=== PATIENT | male | born 1960 | race Caucasian/White ===

== ENCOUNTER 2017-11-17 18:47 | Emergency (ER) | END 2017-11-17 20:40 | disposition home or self-care (01) ==

== ENCOUNTER 2019-02-21 16:33 | Emergency (ER) | payer BC, OTHER ==
[~2019-02-21] VITALS: Ht 167.6 cm; Wt 72.2 kg
[~2019-02-21 16:33] MED LIST: AMOX500C2 PO; IBUP-1542 PO
[2019-02-21 16:49] VITALS: BP 129/58; PULSE 58; RESP 20; Ht 167.6 cm; Wt 72.2 kg
[2019-02-21] MEDS ORDERED: AMOX1TAB10 PO (17:07)
[2019-02-21] MEDS ORDERED: IBUP-1542 PO (17:07)
--- NOTE | 2019-02-21 17:17 | ERD ---
ER Documentation Chief Complaint Chief Complaint c/o right sided dental pain with "puss coming out", had procedure last year HPI Patient is a 58-year-old male with no past medical history, brought in by daughter who presents to the ER for concerns of right upper dental pain. Patient states symptoms started yesterday. Patient states he has had similar pain in the past. Patient states he has had a dental procedure at the affected site in the past and he feels as if his incision site has "opened up". Patient has had dental surgery in the past. Patient denies any fevers or chills. Patient states he is noticed some drainage from the affected area. Patient has not seen a dentist yet. ROS All systems reviewed and are negative except as per history of present illness. Medications Home Meds Active Scripts Ibuprofen* (Motrin*) 600 Mg Tab, 600 MG PO Q6, #30 TAB Prov:GINNA PITTS PA-C 02/21/19 Amoxicillin/Potassium Clav (Amox-Clav 875-125 mg Tablet) 875-125 mg Tab, 1 TAB PO BID for 10 Days, #20 TAB Prov:GINNA PITTS PA-C 02/21/19 Ibuprofen* (Motrin*) 600 Mg Tab, 600 MG PO Q6, #30 TAB Prov:ANDI ROSS NP 11/17/17 Amoxicillin* (Amoxicillin*) 500 Mg Cap, 500 MG PO TID for 10 Days, CAP Prov:ANDI ROSS NP 11/17/17 Reported Medications [None] No Conflict Check 07/10/10 Allergies Allergies: Coded Allergies: No Known Allergies (Verified Allergy, Unknown, 07/10/10) PMhx/Soc History of Surgery: Yes (APPENDECTOMY) Anesthesia Reaction: No Hx Neurological Disorder: No Hx Respiratory Disorders: No Hx Cardiac Disorders: No Hx Psychiatric Problems: No Hx Miscellaneous Medical Probl: No Hx Alcohol Use: Yes (07/07/10) Hx Substance Use: No Hx Tobacco Use: No FmHx Family History: No diabetes Physical Exam Vitals Vital Signs Date Temp Pulse Resp B/P (MAP) Pulse Ox O2 O2 Flow FiO2 Time Delivery Rate 02/21/19 96.9 58 20 129/58 96 16:49 (81) Physical Exam GENERAL: Well-developed, well-nourished male. Appears in no acute distress. Speaking in full sentences. HEAD: Normocephalic, atraumatic. EYES: Pupils are equally reactive bilaterally. EOMs grossly intact. No conjunctival erythema. ENT: Moist mucous membranes. No uvula deviation. No kissing tonsils. Numerous dental caries noted. Right upper molars is tender to palpation. Gumline appears erythematous. No active bleeding or drainage at this time. No drooling. No trismus. No hyperextension of the neck. NECK: Supple. No meningismus. Normal range of motion of the neck. LUNG: Clear to auscultation bilaterally. No rhonchi, wheezing, rales or coarse breath sounds. HEART: Regular rate and rhythm. No murmurs, rubs or gallops. EXTREMITIES: Equal pulses bilaterally. No peripheral clubbing, cyanosis or edema. No unilateral leg swelling. NEUROLOGIC: Alert and oriented. Moving all four extremities without any difficulty. Normal speech. Steady gait. SKIN: Normal color. Warm and dry. No rashes or lesions. Procedures/MDM MEDICAL DECISION MAKING: This is a 58-year-old male with no past medical history presents to the ER for concerns of right upper dental pain x1 day. Vital signs were reviewed. Patient was afebrile. Patient was not hypoxic. The patient did not have trismus, muffled voice, uvula deviation, unilateral tonsillar swelling, or drooling. No signs of neck swelling or hyperextension of the neck noted. On exam, does appear that patient has a numerous dental caries which are contributing to his pain.. Patient will be given antibiotics. Patient advised to follow-up with dentist on outpatient basis. Referral information has been provided. Low suspicion for epiglottitis, strep pharyngitis, peritonsillar abscess, retropharyngeal abscess, Ludwigs angina, tooth fracture, bleeding dental socket, periodontal abscess, ulcerative gingivitis. PRESCRIPTIONS: Ibuprofen, Augmentin DISCHARGE: At this time, patient is stable for discharge and outpatient management. I have instructed the patient to see a dentist today or tomorrow. I have instructed the patient to promptly return to the ER at any time for any new or worsening symptoms including increased pain, fever, swelling, neck swelling, neck stiffness, drooling or difficulty breathing. The patient and/or family expressed understanding of and agreement with this plan. All questions were answered. Home care instructions were provided. Disclaimer: Inadvertent spelling and grammatical errors are likely due to EHR/dictation software use and do not reflect on the overall quality of patient care. Also, please note that the electronic time recorded on this note does not necessarily reflect the actual time of the patient encounter. Departure Diagnosis: Primary Impression: Pain, dental Condition: Fair Patient Instructions: Dental Pain Referrals: [facility] YOU HAVE RECEIVED A MEDICAL SCREENING EXAM AND THE RESULTS INDICATE THAT YOU DO NOT HAVE A CONDITION THAT REQUIRES URGENT TREATMENT IN THE EMERGENCY DEPARTMENT. FURTHER EVALUATION AND TREATMENT OF YOUR CONDITION CAN WAIT UNTIL YOU ARE SEEN IN YOUR DOCTORS OFFICE WITHIN THE NEXT 1-2 DAYS. IT IS YOUR RESPONSIBILITY TO MAKE AN APPOINTMENT FOR FOLOW-UP CARE. IF YOU HAVE A PRIMARY DOCTOR --you should call your primary doctor and schedule an appointment IF YOU DO NOT HAVE A PRIMARY DOCTOR YOU CAN CALL OUR PHYSICIAN REFERRAL HOTLINE AT IF YOU CAN NOT AFFORD TO SEE A PHYSICIAN YOU CAN CHOSE FROM THE FOLLOWING [facility] [address] [facility]. [facility] [address] [facility] [facility] [address] [facility] [address] [facility] [address] [facility]. [facility]. [address] [facility]. [facility] YOU HAVE RECEIVED A MEDICAL SCREENING EXAM AND THE RESULTS INDICATE THAT YOU DO NOT HAVE A CONDITION THAT REQUIRES URGENT TREATMENT IN THE EMERGENCY DEPARTMENT. FURTHER EVALUATION AND TREATMENT OF YOUR CONDITION CAN WAIT UNTIL YOU ARE SEEN IN YOUR DOCTORS OFFICE WITHIN THE NEXT 1-2 DAYS. IT IS YOUR RESPONSIBILITY TO MAKE AN APPOINTMENT FOR FOLOW-UP CARE. IF YOU HAVE A PRIMARY DOCTOR --you should call your primary doctor and schedule and appointment IF YOU DO NOT HAVE A PRIMARY DOCTOR YOU CAN CALL OUR PHYSICIAN REFERRAL HOTLINE AT . IF YOU CAN NOT AFFORD TO SEE A PHYSICIAN YOU CAN CHOSE FROM THE FOLLOWING [facility] INSTITUTIONS: [facility] [address] [place] [address] [facility] [address] [place] [address] [facility] [address] [place] [address] [facility] DENTIST ([facility] walk in clinic) Additional Instructions: Llame al doctor/ Dentista MAANA y slime thelma YVONNE PARA DENTRO DE 1-2 MORALES.Dgale a la secretaria que nosotros le instruimos hacer esta yvonne.Avise o llame si amaro condicin se empeora antes de la yvonne. Regresa aqui si peor o no mejor. GINNA PITTS PA-C February 21, 2019 17:17
== END 2019-02-21 17:52 | disposition home or self-care (01) ==
LOC: E/R 16:33
DX: K08.89 Other specified disorders of teeth and supporting structures (principal)
CPT/HCPCS: 99283